=== PATIENT | male | born 1955 | race Caucasian/White ===

== ENCOUNTER → 2017-01-27 | Outpatient (CLI) | payer OTHER ==
[~2017-01-27] MED LIST: GADAVIST IV PRN
--- NOTE | 2017-01-27 10:49 | DIAGNOSTIC IMAGING REPORT ---
MRI THE THORACIC SPINE WITHOUT AND WITH GADOLINIUM CLINICAL HISTORY: New onset foot numbness and tingling. Evaluate for hemorrhage. COMPARISON STUDY: No previous studies for comparison. FINDINGS: Imaging was performed in the sagittal and axial planes, before and after the administration of 8 cc of intravenous Gadavist. There is marrow edema within the T12 vertebral body and posterior elements. There is a horizontal cleft within the T12 vertebral body suggestive of a chance type fracture. Please can't with prior history. The patient is status post a spinal fusion with pedicle screws the T10, T11, L1, and L2 levels. There are no additional areas of marrow replacement. No cord lesions are visualized. Evaluation of the lower thoracic and upper lumbar cord is limited due to artifact secondary to the posterior spinal fusion. There is a probable small amount of posttraumatic epidural hemorrhage at the T11-12 level. This results in mild spinal canal narrowing. IMPRESSION: 1. Abnormal marrow signal within the T12 vertebral body and posterior elements, likely on a post traumatic basis. Please correlate with prior history 2. Postsurgical changes of a posterior spinal fusion with pedicle screws the T10, T11, L1, and L2 levels 3. Artifact secondary to the spinal hardware 4. Probable small posterior epidural hematoma at the T11-12 level resulting in mild spinal canal narrowing at this level Electronically signed by: Kaushik Shore M.D. 01/27/2017 10:48 AM Dictated Date/Time: 01/27/2017 10:34 AM
== END | disposition home or self-care (01) ==
LOC: C.MRI 09:23
PROVIDERS: ATTEND Registered Nurse
DX: R20.2 Paresthesia of skin (principal); R93.7 Abnormal findings on diagnostic imaging of other parts of musculoskeletal system; Z98.1 Arthrodesis status